=== PATIENT | male | born 1930 | race Caucasian/White ===

== ENCOUNTER 2017-12-19 22:37 | Inpatient (IN) | payer OTHER ==
[~2017-12-19] VITALS: Ht 177.8 cm; Wt 108.9 kg
--- NOTE | ~2017-12-19 | HC ---
[facility] [place] [address] CONSULTATION Name: SUSHMA RÍOS Room #: 205-P [facility] IN M.R.#: [id number] Admission: 12/20/17 Attend Phys: Armando Mejia MD Discharge: Date of : 30 Report #: [id number] THIS REPORT FOR: //name// CC: Scott Mejia DATE OF SERVICE: 12/20/2017 ATTENDING PHYSICIAN: Scott Bradford DO REASON FOR CONSULTATION: Antibiotic management. HISTORY OF PRESENT ILLNESS: An 87-year-old white man, resident of local jail, admitted through the Emergency Room with history of fevers and feeling unwell. The patient on admission found to be azotemic and chest x-ray revealed left infiltrate. He is started on Azactam, levofloxacin and vancomycin. The patient tells me he is 78 years old and resides at the local jail for about a year or thereabouts. All in all, he is unable to tell me how high fever was at the jail. He tells me he is not feeling well. Other than that no significant ability to give much information. DRUG ALLERGIES: PENICILLIN, respiratory distress. MEDICATIONS: At the jail, the patient appears to be on treatment with acetaminophen, aspirin, chlorhexidine gluconate oral, doxycycline, docusate, escitalopram, 5-fluorouracil topical, gabapentin, Atrovent and albuterol inhalation treatments, levothyroxine, loperamide p.r.n., multivitamins, olanzapine, pantoprazole, Silodosin, ropinirole, simvastatin. PAST MEDICAL HISTORY: PENICILLIN allergy, dyslipidemia, periodontal disease, question COPD, obesity, dementia, atrial fibrillation, previous urinary retention, atherosclerotic heart disease, diarrhea, hypothyroidism, alcoholic polyneuropathy and gastroesophageal reflux disease. SOCIAL HISTORY: , 2 grown daughters. No current tobacco or alcohol. REVIEW OF SYSTEMS: See H and P and as above. PHYSICAL EXAMINATION: GENERAL: A well-developed man, not toxic looking, unable to give me proper age. VITAL SIGNS: He presents the following vital signs: Temperature 98.3, pulse 102, BP as low as 87/58, respirations 22. HEENMT: Head normocephalic, atraumatic. Pupils reactive. Mouth: Severe periodontal disease. NECK: Supple. LUNGS: Crackles, left base posteriorly. [facility] [address] [place] [address] CONSULTATION Name: SUSHMA RÍOS Room #: [address] [place] [address] IN M.R.#: [id number] Admission: 12/20/17 Attend Phys: Armando Mejia MD Discharge: Date of : 30 Report #: [id number] HEART: S1, S2. No gallop. ABDOMEN: Soft, obese. No masses or megaly. GENITALIA AND RECTAL: Deferred. EXTREMITIES: No clubbing, cyanosis. NEUROLOGIC: Grossly within normal limits. LABORATORY DATA: Sodium 137, potassium 3.4, replaced and is 3.9 after replacement. BUN on admission 43, creatinine 0.9 after fluid boluses, BUN 40, creatinine 1.4, calcium 6.9, possibly reflecting hypoalbuminemia. WBC is 6500, hemoglobin 15.2 g/dL. After fluid resuscitation, hemoglobin dropped to 13 g/dL, platelets 212,000. No differential. MICROBIOLOGY DATA: Blood cultures obtained and negative so far. Screen for influenza A and B pending. RADIOLOGY EVALUATION: Chest x-ray revealed left pulmonary infiltrate. ASSESSMENT: 1. Healthcare-associated pneumonia. 2. Acute kidney injury -- dehydration, improved. 3. Periodontal disease. 4. Dementia. 5. Dyslipidemia. 6. Hypothyroidism. SUGGESTIONS: Recommend to continue vancomycin and levofloxacin at current dose. Decrease Azactam 1 gram IV every 8 hours. [place]a catheter to assess urine output correctly. Arterial blood gases. Monitor laboratory parameters in the morning. Dr. Bradford, thank you for requesting my suggestions in the care of your patient. <ELECTRONICALLY SIGNED> By: Harshil Toney MD 12/21/17 1002 1100 Harshil Toney MD /nt
--- NOTE | ~2017-12-19 | EKG ---
[place] [address] [facility] [place] [address] ELECTROCARDIOGRAM REPORT Name: SUSHMA RÍOS Room #: 170-2 ADM IN M.R.#: [id number] Admission: 12/20/17 Attend Phys: Armando Mejia MD Discharge: Date of : 30 Report #: [id number] THIS REPORT FOR: //name// [facility] ED Test Date: 2017-12-19 Test Time: 22:46:42 Pat Name: SUSHMA RÍOS Department: Room: 170 Gender: M Diecast Machine Operator: EARLE : 1930 Requested By: Juliocesar Baker Order Number: [id number] MD: Omi Sheridan Measurements Intervals [place] Rate: 100 P: 0 [place]: 187 QRS: -34 QRSD: 98 T: 113 QT: 460 QTc: 594 Interpretive Statements Sinus tachycardia Inferior infarct, old Poor R wave progression Prolonged QT interval No previous ECG available for comparison Electronically Signed On 12-20-2017 8:59:16 POUNCING MACHINE OPERATOR by Omi Sheridan [email or web address] <ELECTRONICALLY SIGNED> By: Omi Sheridan MD, [facility] 12/20/17 [id number] Omi Sheridan MD, FACC /EPI
[2017-12-19 22:40] VITALS: BP 94/63
[2017-12-19 23:30] LABS: HEMATOCRIT 44.1 % (42.0-52.0); HEMOGLOBIN 15.2 gm/dL (14.0-18.0); MCH 30.8 pg (26.0-34.0); MCHC 34.4 g/dL (28.0-37.0); MCV 89.4 fL (80.0-100.0); RBC 4.93 mil/uL (4.50-6.00); RDW 13.6 % (10.5-14.5); WBC 11.3 thou/uL (4.0-11.0)
[2017-12-19 23:39] LABS: ANION GAP 11 mmol/L (7-16); BUN 43 mg/dL (7-18); CALCIUM 8.6 mg/dL (8.5-10.1); CHLORIDE 100 mmol/L (98-107); CO2 26 mmol/L (21-32); CREATININE 1.9 mg/dL (0.7-1.3); GLUCOSE 147 mg/dL (74-106); POTASSIUM 3.4 mmol/L (3.5-5.1); SODIUM 137 mmol/L (136-145)
[2017-12-19 23:47] LABS: ALBUMIN 3.6 g/dL (3.4-5.0); SGOT 20 U/L (15-37); SGPT 19 U/L (30-65); TOTAL BILIRUBIN 0.7 mg/dL (<0.1-1.0); TOTAL PROTEIN 7.8 g/dL (6.4-8.2); TROPONIN-I < 0.04 ng/mL (<0.06)
[2017-12-20] MEDS ORDERED: TYLENOL325 MG PO (01:06)
[2017-12-20] MEDS ORDERED: ASPIR 8181 MG PO (01:06)
[2017-12-20] MEDS ORDERED: PERIDEX15 ML PORT (01:07)
[2017-12-20] MEDS ORDERED: COLACE100 MG PO (01:07)
[2017-12-20] MEDS ORDERED: DORYX50 MG PO (01:08)
[2017-12-20] MEDS ORDERED: ESCITALOPRAM OXA5 MG PO (01:08)
[2017-12-20] MEDS ORDERED: CARAC30 GM TOP (01:09)
[2017-12-20] MEDS ORDERED: DUONEB 2.5-0.5 M3 ML INH (01:10)
[2017-12-20] MEDS ORDERED: NEURONTIN 300300 M1 PO (01:10)
[2017-12-20] MEDS ORDERED: UNICOMPLEX M TA1 TA1 PO (01:11)
[2017-12-20] MEDS ORDERED: SYNTHROID75 MCG PO (01:11)
[2017-12-20] MEDS ORDERED: LOPERAMIDE 2 MG2 M1 PO (01:11)
[2017-12-20] MEDS ORDERED: ZYPREXA7.5 MG PO (01:24)
[2017-12-20] MEDS ORDERED: PROTONIX40 M1 PO (01:25)
[2017-12-20] MEDS ORDERED: RAPAFLO8 MG PO (01:26)
[2017-12-20] MEDS ORDERED: ROPINIROLE HCL4 M1 PO (01:27)
[2017-12-20] MEDS ORDERED: ZOCOR20 MG PO (01:27)
[2017-12-20 06:51] LABS: HEMATOCRIT 38.6 % (42.0-52.0); MCH 30.7 pg (26.0-34.0); MCHC 33.7 g/dL (28.0-37.0); MCV 91.1 fL (80.0-100.0); RBC 4.24 mil/uL (4.50-6.00); RDW 14.1 % (10.5-14.5); WBC 8.5 thou/uL (4.0-11.0)
[2017-12-20 07:05] LABS: CALCIUM 6.9 mg/dL (8.5-10.1); CREATININE 1.4 mg/dL (0.7-1.3); POTASSIUM 3.9 mmol/L (3.5-5.1)
[2017-12-20 11:56] VITALS: BP 99/67
[2017-12-20 12:32] VITALS: BP 130/68
[2017-12-20 13:08] LABS: BE(vivo) -0.8 mmol/L (-2 to +3); HCO3 23.1 mmol/L (22.0-26.0); PCO2 35.9 mmHg (35.0-45.0); PO2 60.4 mmHg (80.0-100.0); pH 7.426 (7.360-7.450); sO2 91.9 % (92.0-98.0)
[2017-12-20 15:36] VITALS: BP 123/76
[2017-12-20 19:46] VITALS: BP 133/62
[2017-12-20 22:37] VITALS: BP 133/62
[2017-12-20 23:58] VITALS: BP 142/52
[2017-12-21 04:14] VITALS: BP 74/52
[2017-12-21 05:21] LABS: CALCIUM 7.2 mg/dL (8.5-10.1); POTASSIUM 3.8 mmol/L (3.5-5.1)
[2017-12-21 05:25] LABS: HEMATOCRIT 35.3 % (42.0-52.0); HEMOGLOBIN 11.8 gm/dL (14.0-18.0); MCH 30.9 pg (26.0-34.0); MCHC 33.5 g/dL (28.0-37.0); MCV 92.5 fL (80.0-100.0); RBC 3.82 mil/uL (4.50-6.00); RDW 13.9 % (10.5-14.5); WBC 7.4 thou/uL (4.0-11.0)
[2017-12-21 05:43] VITALS: BP 117/73
[2017-12-21 07:22] VITALS: BP 87/53
[2017-12-21 11:23] VITALS: BP 90/61
[2017-12-21 15:18] VITALS: BP 95/55
[2017-12-21 19:45] VITALS: BP 125/57
[2017-12-22 04:00] VITALS: BP 128/70
[2017-12-22 04:48] LABS: HEMATOCRIT 34.1 % (42.0-52.0); HEMOGLOBIN 11.6 gm/dL (14.0-18.0); MCHC 34.1 g/dL (28.0-37.0); MCV 91.1 fL (80.0-100.0); RBC 3.75 mil/uL (4.50-6.00); RDW 13.5 % (10.5-14.5); WBC 7.1 thou/uL (4.0-11.0)
[2017-12-22 04:56] LABS: CALCIUM 7.4 mg/dL (8.5-10.1); CREATININE 0.8 mg/dL (0.7-1.3); POTASSIUM 3.6 mmol/L (3.5-5.1)
[2017-12-22 07:39] VITALS: BP 123/72
[2017-12-22 12:10] VITALS: BP 142/75
[2017-12-22 15:30] VITALS: BP 142/84
[2017-12-22 20:06] VITALS: BP 149/88
[2017-12-23 04:51] LABS: CALCIUM 7.9 mg/dL (8.5-10.1); CREATININE 0.9 mg/dL (0.7-1.3); POTASSIUM 3.7 mmol/L (3.5-5.1)
[2017-12-23 05:06] VITALS: BP 135/83
[2017-12-23 05:23] LABS: HEMATOCRIT 34.4 % (42.0-52.0); HEMOGLOBIN 11.8 gm/dL (14.0-18.0); MCHC 34.3 g/dL (28.0-37.0); MCV 90.4 fL (80.0-100.0); RBC 3.81 mil/uL (4.50-6.00); RDW 13.5 % (10.5-14.5); WBC 6.7 thou/uL (4.0-11.0)
[2017-12-23 07:10] VITALS: BP 120/71
[2017-12-23 07:25] VITALS: BP 169/112
[2017-12-23 11:20] VITALS: BP 142/84
[2017-12-23 16:00] VITALS: BP 128/77
[2017-12-23 20:45] VITALS: BP 153/78
[2017-12-24 05:12] VITALS: BP 146/92
[2017-12-24 08:00] VITALS: BP 158/87
[2017-12-24 12:00] VITALS: BP 125/80
[2017-12-24 16:00] VITALS: BP 133/77
[2017-12-24 19:55] VITALS: BP 141/81
[2017-12-25 04:02] LABS: HEMATOCRIT 39.5 % (42.0-52.0); HEMOGLOBIN 13.6 gm/dL (14.0-18.0); MCH 31.1 pg (26.0-34.0); MCHC 34.3 g/dL (28.0-37.0); MCV 90.6 fL (80.0-100.0); PLATELET COUNT 224 thou/uL (150-400); RBC 4.36 mil/uL (4.50-6.00); RDW 13.3 % (10.5-14.5); WBC 8.5 thou/uL (4.0-11.0)
[2017-12-25 04:17] LABS: CALCIUM 8.3 mg/dL (8.5-10.1); POTASSIUM 4.1 mmol/L (3.5-5.1)
[2017-12-25 04:45] VITALS: BP 150/96
[2017-12-25 07:31] LABS: ABSOLUTE NEUTROPHILS 7.1 thou/uL (1.4-8.2); METAMYELOCYTES 4 %
[2017-12-25 07:32] LABS: ANISOCYTOSIS 1+
[2017-12-25 08:00] VITALS: BP 127/76
[2017-12-25 11:20] VITALS: BP 91/63
[2017-12-25] MEDS ORDERED: LEVAQUIN 500 M500 M1 PO (12:07)
== END 2017-12-25 16:29 | DRG 871 ==
LOC: ER 22:37 → EROBS 12-20 → 2N 12-20
PROVIDERS: Emergency Medicine; Hospitalist; Internal Medicine Infectious Disease; Nurse Practitioner Family
DX: A41.9 Sepsis, unspecified organism (principal); J69.0 Pneumonitis due to inhalation of food and vomit; N17.0 Acute kidney failure with tubular necrosis; F03.91 Unspecified dementia, unspecified severity, with behavioral disturbance; I48.91 Unspecified atrial fibrillation; F32.9 Major depressive disorder, single episode, unspecified; F41.9 Anxiety disorder, unspecified; I25.10 Atherosclerotic heart disease of native coronary artery without angina pectoris; K59.00 Constipation, unspecified; E03.9 Hypothyroidism, unspecified; E78.5 Hyperlipidemia, unspecified; K21.9 Gastro-esophageal reflux disease without esophagitis; F29 Unspecified psychosis not due to a substance or known physiological condition; Z66 Do not resuscitate; G62.1 Alcoholic polyneuropathy; E86.0 Dehydration; K05.6 Periodontal disease, unspecified; F17.210 Nicotine dependence, cigarettes, uncomplicated; Z88.0 Allergy status to penicillin; Z79.82 Long term (current) use of aspirin; Z79.899 Other long term (current) drug therapy
CPT/HCPCS: 10081

== ENCOUNTER 2018-01-22 17:26 | Emergency (ER) | payer OTHER ==
[~2018-01-22] VITALS: Ht 177.8 cm; Wt 97.5 kg
--- NOTE | ~2018-01-22 | EKG ---
[place] [address] [facility] [email or web address] [address] ELECTROCARDIOGRAM REPORT Name: SUSHMA RÍOS [facility] [id number] Admission: 01/22/18 Attend Phys: Discharge: 01/22/18 Date of : 30 Report #: [id number] THIS REPORT FOR: //name// [facility] ED Test Date: 2018-01-22 Test Time: 17:33:13 Pat Name: SUSHMA RÍOS Department: Room: Gender: M Sales Team Member: [facility] : 1930 Requested By: Sean Jenkins Order Number: [id number] MD: Omi Sheridan Measurements Intervals [place] Rate: 57 P: 0 DC: 57 QRS: -34 QRSD: 108 T: 1 QT: 442 QTc: 431 Interpretive Statements Sinus rhythm Short DC interval Inferior infarct, old Anterior infarct, old Compared to ECG 12/19/2017 22:46:42 Sinus tachycardia no longer present Electronically Signed On 01-23-2018 8:06:18 MAGAZINE WRITER by Omi Sheridan [email or web address] <ELECTRONICALLY SIGNED> By: Omi Sheridan MD, [facility] 01/23/18 0806 [id number] Omi Sheridan MD, FACC /EPI
[~2018-01-22 17:26] MED LIST: ASPIR 8181 MG PO; CARAC30 GM TOP; COLACE100 MG PO; DORYX50 MG PO; DUONEB 2.5-0.5 M3 ML INH; ESCITALOPRAM OXA5 MG PO; LEVAQUIN 500 M500 M1 PO; LOPERAMIDE 2 MG2 M1 PO; NEURONTIN 300300 M1 PO; PERIDEX15 ML PORT; PROTONIX40 M1 PO; RAPAFLO8 MG PO; ROPINIROLE HCL4 M1 PO; SYNTHROID75 MCG PO; TYLENOL325 MG PO; UNICOMPLEX M TA1 TA1 PO; ZOCOR20 MG PO; ZYPREXA7.5 MG PO
[2018-01-22 17:54] LABS: ABSOLUTE NEUTROPHILS 3.5 thou/uL (1.4-8.2); BASOPHILS 0.4 % (0.0-2.0); EOSINOPHILS 1.2 % (0.0-3.0); HEMATOCRIT 39.9 % (42.0-52.0); HEMOGLOBIN 13.5 gm/dL (14.0-18.0); LYMPHOCYTES 27.1 % (24.0-44.0); MCHC 33.9 g/dL (28.0-37.0); MCV 91.2 fL (80.0-100.0); MONOCYTES 10.8 % (1.0-8.0); PLATELET COUNT 239 thou/uL (150-400); POLYS 60.5 % (36.0-66.0); RBC 4.38 mil/uL (4.50-6.00); RDW 14.2 % (10.5-14.5); WBC 5.8 thou/uL (4.0-11.0)
[2018-01-22 18:01] LABS: CALCIUM 8.8 mg/dL (8.5-10.1); CREATININE 1.1 mg/dL (0.7-1.3); POTASSIUM 4.1 mmol/L (3.5-5.1)
[2018-01-22 19:15] VITALS: BP 140/77
== END 2018-01-22 19:15 | disposition home or self-care (01) ==
LOC: ER 17:26
PROVIDERS: Emergency Medicine
DX: R41.0 Disorientation, unspecified (principal); I48.91 Unspecified atrial fibrillation; F03.90 Unspecified dementia, unspecified severity, without behavioral disturbance, psychotic disturbance, mood disturbance, and anxiety; E03.9 Hypothyroidism, unspecified; E78.5 Hyperlipidemia, unspecified; K21.9 Gastro-esophageal reflux disease without esophagitis; Z88.0 Allergy status to penicillin